=== PATIENT | male | born 1975 | race Caucasian/White ===

== ENCOUNTER 2024-10-10 09:30 | Day surgery (SDC) | payer MEDICARE ==
[2024-10-09 14:51] VITALS: BMI 21.4
[2024-10-10] MEDS ORDERED: PROPOFOL 20 ML ONE (11:33)
== END 2024-10-10 13:33 | disposition home or self-care (01) ==
LOC: SDC 09:30
PROVIDERS: ATTEND Internal Medicine Gastroenterology
PROC: 0DJ08ZZ Inspection of Upper Intestinal Tract, Via Natural or Artificial Opening Endoscopic (ICD-10-PCS; principal; 2024-10-10)
PROC: 0D757ZZ Dilation of Esophagus, Via Natural or Artificial Opening (ICD-10-PCS; 2024-10-10)
DX: R13.10 Dysphagia, unspecified (principal); I10 Essential (primary) hypertension; Z87.891 Personal history of nicotine dependence; Z86.73 Personal history of transient ischemic attack (TIA), and cerebral infarction without residual deficits; Z79.82 Long term (current) use of aspirin; Z79.899 Other long term (current) drug therapy
CPT/HCPCS: 43235; 43450; J2704

== ENCOUNTER 2024-12-24 12:32 | Outpatient (CLI) | payer MEDICARE ==
[2024-12-24] MEDS ORDERED: Barium Sulfate 96% 176 GM BOT (xray ONLY) ONE (12:50)
[2024-12-24] MEDS ORDERED: E-Z-HD 98% W/W 340GM BOT (x-ray ONLY) ONE (12:50)
== END 2024-12-24 12:33 | disposition home or self-care (01) ==
LOC: RAD 12:32
PROVIDERS: ATTEND Physician Assistant Medical
DX: R13.10 Dysphagia, unspecified (principal); K22.89 Other specified disease of esophagus
CPT/HCPCS: 74220